=== PATIENT | male | born 1995 | race Two or more races ===

== ENCOUNTER 2017-05-08 13:47 | Emergency (ER) | payer BC ==
[2017-05-08 14:24] VITALS: RESP 16; TEMP 98.6
--- NOTE | 2017-05-08 14:43 | EDPHY ---
H & P Time Seen by Provider: 05/08/17 14:11 HPI/ROS: CHIEF COMPLAINT: recurrent diarrhea, history of C diff HISTORY OF PRESENT ILLNESS: A 22-year-old male who arrived to the ER today as he was scheduled to see the gastroenterology follow-up. However he did not have enough money to me the co-pay thus was to reschedule. As his symptoms are continuing and worsening he would like to get examined here and further treatment. He 1st started having diarrhea and bloody episodes of diarrhea some 2 years ago. He was evaluated at a GI office in [place]. Colonoscopy revealed inflammation of the terminal ileum. Was subsequently diagnosed as having Crohn' s disease. No stools were taken of the time although interestingly, he was working at a nursing over the time. Evidently this past December she had a colonoscopy which was noncontributory. Vis- a-vis he had negative biopsies of the upper GI tract including stomach and duodenum as well as the colon. Subsequently he reports having a C diff positive while going to [facility] ER approximately 3 months ago in January of this year. At that time was placed on a 2 week course of Flagyl which worked well although he still had some diarrhea was far less problematic. In the last few weeks he started noting seen basically resumption of usual symptoms of diarrhea some 4 times a day with tenesmus and urgency. In particular he will wake up of 5 in the morning with this. At times blood but always there seems to be mucus. He has never been diagnosed with irritable bowel syndrome. He is denying significant weight loss. He is having no fevers or chills. There has been no known food exposure or food-borne illness exposure. No one else is currently sick. No recent antibiotic use except for that of the Flagyl as above. REVIEW OF SYSTEMS: Constitutional: No fever, no chills. ENT: No sore throat. He does not recall having a metallic taste while on Flagyl Gastrointestinal: No nausea vomiting. No abdominal pain. Skin: No rashes. Neurological: No headache. Denies any paresthesias. Source: Patient Exam Limitations: No limitations - Social History Alcohol Use: None Drug Use: None - Physical Exam Exam: General Appearance: Alert, no distress. Afebrile. Normal phonation. No respiratory distress. Fit, trim male Eyes: No icterus ENT, Mouth: Mucous membranes moist. TM Clear. Abdomen: Soft and nontender, no masses, bowel sounds normal. Neurological: Ox3. No motor weakness. Sensation intact. Gait nl. Skin: Warm and dry, no rashes. Psychiatric: Normal affect. Constitutional: Initial Vital Signs Temperature (C) 37.0 C 05/08/17 14:05 Heart Rate 70 05/08/17 14:05 Respiratory Rate 16 05/08/17 14:05 Blood Pressure 139/84 H 05/08/17 14:05 O2 Sat (%) 97 05/08/17 14:05 O2 Delivery Mode Room Air Allergies/Adverse Reactions: No Known Allergies Allergy (Verified 05/08/17 14:20) Home Medications: Medication Instructions Recorded Hyoscyamine Sulfate [Levsin] 0.25 mg PO Q4 #20 tablet 05/08/17 Protonix 05/08/17 Ranitidine HCl 05/08/17 metroNIDAZOLE [Flagyl 500 mg (*)] 500 mg PO TID #30 tab 05/08/17 Medical Decision Making ED Course/Re-evaluation: I have encouraged this man to see the silver solderer as originally scheduled. He has a complicated case. However, there certainly are treatment failures to initial dose of Flagyl thereby as it has been 3 months, if he continues to have C diff positive, I would encourage him to complete another course for C diff with Flagyl. Further, he will trial of Levsin for symptomatic management. At this time he has good color and nothing on clinical exam to suggest he has a significant anemia that merits monitoring at this time Differential Diagnosis: Differential diagnosis includes, but is not limited to: Gastroenteritis, diverticulitis, appendicitis, gastritis, mesenteric adenitis, food poisoning, bacterial dysentery, colitis. Departure - Departure Disposition: Home, Routine, Self-Care Clinical Impression: Diarrhea Qualifiers: Diarrhea type: infectious Qualified Code(s): A09 - Infectious gastroenteritis and colitis, unspecified Condition: Good Additional Instructions: Call tomorrow for your C difficile results. If it is positive, then resume taking the Flagyl. If negative then do not fill. Use Levsin for symptomatic treatment. Follow up with GI this next week Start with a stool log for the next two weeks.. Referrals: NONE *PRIMARY CARE P,. [Primary Care Provider] - As per Instructions Stand Alone Forms: Outpatient Laboratory Order Prescriptions: Hyoscyamine Sulfate [Levsin] 0.25 mg PO Q4 #20 tablet metroNIDAZOLE [Flagyl 500 mg (*)] 500 mg PO TID #30 tab
[2017-05-08 16:43] VITALS: BP 132/69; PULSE 88; O2SAT 95
== END 2017-05-08 15:50 | disposition home or self-care (01) ==
LOC: CED 13:47
DX: A09 Infectious gastroenteritis and colitis, unspecified (principal)

== ENCOUNTER 2017-06-23 10:23 | Emergency (ER) | payer SELFPAY ==
--- NOTE | 2017-06-23 12:02 | EDPHY ---
H & P Stated Complaint: +c/diff;scheduled for MRE 07/03 but wants it today - Personal History Current Tetanus Diphtheria and Acellular Pertussis (TDAP): Yes - Medical/Surgical History Hx Asthma: No Hx Chronic Respiratory Disease: No Hx Diabetes: No Hx Cardiac Disease: No Hx Renal Disease: No Hx Cirrhosis: No Hx Alcoholism: No Hx HIV/AIDS: No Hx Splenectomy or Spleen Trauma: No Other PMH: Med ym-N-dpah-dx 01/2017. Surg-none - Social History Smoking Status: Never smoked Time Seen by Provider: 06/23/17 11:40 HPI/ROS: CHIEF COMPLAINT: Abdominal pain history of C diff HISTORY OF PRESENT ILLNESS: 22-year-old male history of C diff colitis currently receiving treatment with oral vancomycin followed by GI of the [facility] Dr. Cain Azevedo complaining of 3 days of progressive epigastric and right sided abdominal pain . No fever no chills. No nausea or vomiting. No melena or hematochezia. No urinary complaints. No testicular pain REVIEW OF SYSTEMS: A ten point review of systems was performed and is negative with the exception of the items mentioned in the HPI PAST MEDICAL & SURGICAL HISTORY: C diff colitis SOCIAL HISTORY: nonsmoker PHYSICAL EXAM (Prior to examination, patient consented to physical exam, hands were washed and my usual and customary physical exam procedures followed) 1) GENERAL: Well-developed, well-nourished, alert and oriented. Appears nontoxic 2) HEAD: Normocephalic, atraumatic 3) HEENT: Pupils equal, round, reactive to light bilaterally. Sclera anicteric. Nasopharynx, oropharynx, clear, no lesions a moist mucous membrane. 4) NECK: Full range of motion, no meningeal signs. 5) LUNGS: Clear auscultation bilaterally, no wheezes, no rhonchi, no retractions. 6) HEART: Regular rate and rhythm, no murmur, no heave, no gallop. 7) ABDOMEN: Guarding abdomen, tender to palpation McBurney's point, tender to palpation epigastrium, negative Rovsing's negative peritoneal negative Sol's , 8) MUSCULOSKELETAL: Moving all extremities, no focal areas of tenderness, no obvious trauma. No peripheral edema or discoloration. 9) BACK: No CVA tenderness, no midline vertebral tenderness, no fluctuance, no step-off, no obvious trauma, no visual or palpable abnormality. 10) SKIN: No rash, no petechiae. 11) Psychiatric: Patient is oriented X 3, there is no agitation. DIFFERENTIAL DIAGNOSIS: My differential diagnosis includes, but is not limited to, acute appendicitis, acute cholecystitis, bowel obstruction, acute pancreatitis,gastritis . The patient understands that this diagnosis is provisional and can never be 100% accurate. This is a partial list of diagnoses considered. These considerations are based on history, physical exam, past history and reassessment. (Liz Self) Constitutional: Initial Vital Signs Temperature (C) 36.7 C 06/23/17 10:30 Heart Rate 67 06/23/17 10:30 Respiratory Rate 16 06/23/17 10:30 Blood Pressure 121/64 H 06/23/17 10:30 O2 Sat (%) 98 06/23/17 10:30 O2 Delivery Mode Room Air Allergies/Adverse Reactions: No Known Allergies Allergy (Verified 06/23/17 10:33) Home Medications: Medication Instructions Recorded Vancomycin [Vancocin Oral Liquid] 125 mg PO 06/23/17 oxyCODONE/APAP 5/325 [Percocet 1 tab PO Q6 #10 tab 06/23/17 5/325] Medical Decision Making - Diagnostics Imaging: Discussed imaging studies w/ administrative support coordinator Radiologist - Diagnostics Imaging Results: Images reviewed myself (Liz Self) ED Course/Re-evaluation: Case discussed with Dr. [place] in the ER. Patient was re-evaluated with serial exams. Discussed his CT showing normal appearing appendix and no signs of acute surgical abdominal pathology. I think that acute surgical abdominal pathology less likely in this patient. Most recent examination at 1:30 p.m. he appears comfortable. Plan will be discharge recommend he follow up with his novelty dipper as previously directed. Usual and customary abdominal precautions instructions provided. He feels comfortable being discharged. ( Liz Self) The patient was evaluated and managed by the physician press assistant and feeder. I have reviewed this chart and I agree with the findings and plan of care as documented , as indicated by my signature. I am the secondary supervising physician. ( Christa [place]) - Data Points Laboratory Results: Laboratory Results 06/23/17 12:15 06/23/17 12:15 Medications Given: Discontinued Medications Al Hydroxide/Mg Hydroxide (Maalox Susp) 30 ml PO ONCE ONE Stop: 06/23/17 13:56 Last Admin: 06/23/17 14:08 Dose: 30 ml Hyoscyamine Sulfate (Levsin, Hyomax-Sl) 0.25 mg PO ONCE ONE Stop: 06/23/17 13:56 Last Admin: 06/23/17 14:08 Dose: 0.25 mg Ketorolac Tromethamine (Toradol) 30 mg IVP EDNOW ONE Stop: 06/23/17 12:54 Last Admin: 06/23/17 12:56 Dose: 30 mg Lidocaine (Lidocaine 2% Viscous) 15 ml PO ONCE ONE Stop: 06/23/17 13:56 Last Admin: 06/23/17 14:08 Dose: 15 ml Departure - Departure Disposition: Home, Routine, Self-Care Clinical Impression: C. difficile colitis Condition: Good Instructions: Acute Abdominal Pain (ED) Additional Instructions: Seek immediate medical attention if you develop new or worsening symptoms, if you develop fevers, chills, inability to tolerate oral intake or any other symptoms that concerns you. Referrals: Gastroenterology [facility] [Provider Group] - 1-2 days without fail Prescriptions: oxyCODONE/APAP 5/325 [Percocet 5/325] 1 tab PO Q6 #10 tab
[2017-06-23 12:23] LABS: % IMMATURE GRANULYOCYTES 0.4 % (0.0-1.1); ABSOLUTE IMMATURE GRANULOCYTES 0.02 10^3/uL (0.00-0.10); ADD DIFF? NO; ADD MORPH? NO; ADD SCAN? NO; ATYPICAL LYMPHOCYTE FLAG 30 (0-99); FRAGMENT RBC FLAG 0 (0-99); HEMATOCRIT 47.5 % (40.0-51.0); HEMOGLOBIN 16.4 g/dL (13.7-17.5); LEFT SHIFT FLG 0 (0-99); LIPEMIA HEMOLYSIS FLAG 90 (0-99); MEAN CELL HEMOGLOBIN 30.6 pg (27.9-34.1); MEAN CELL HEMOGLOBIN CONCENTR. 34.5 g/dL (32.4-36.7); MEAN CELL VOLUME 88.6 fL (81.5-99.8); MEAN PLATELET VOLUME 10.3 fL (8.7-11.7); PLATELET CLUMPS FLAG 0 (0-99); PLATELET COUNT 217 10^3/uL (150-400); RED BLOOD CELL COUNT 5.36 10^6/uL (4.40-6.38); RED CELL DISTRIBUTION WIDTH 12.2 % (11.5-15.2)
[2017-06-23] MEDS ORDERED: IOPAMIDOL (ISOVUE-300) 100 ML BTL ONE (12:27)
[2017-06-23 12:43] LABS: ALANINE AMINOTRANSFERASE 34 IU/L (21-72); ALBUMIN 4.4 g/dL (3.5-5.0); ALKALINE PHOSPHATASE 51 IU/L (38-126); ANION GAP 11 mEq/L (8-16); ASPARTATE AMINOTRANSFERASE 24 IU/L (17-59); BILIRUBIN,TOTAL 0.7 mg/dL (0.1-1.4); BILIRUBIN-CONJUGATED 0.2 mg/dL (0.0-0.5); BILIRUBIN-UNCONJUGATED 0.5 mg/dL (0.0-1.1); CALCIUM 10.3 mg/dL (8.5-10.4); CARBON DIOXIDE 23 mEq/l (22-31); CHLORIDE 104 mEq/L (97-110); CREATININE 1.1 mg/dL (0.7-1.3); GLOMERULAR FILTRATION RATE > 60; GLUCOSE 91 mg/dL (70-100); POTASSIUM 4.4 mEq/L (3.5-5.2); SODIUM 138 mEq/L (134-144); TOTAL PROTEIN 7.6 g/dL (6.3-8.2)
[2017-06-23] MEDS ORDERED: KETOROLAC 30 MG/1 ML SDV IVP ONE (12:53)
[2017-06-23] MEDS ORDERED: HYOSCYAMINE SULFATE 0.125 MG TAB PO ONE (13:55)
[2017-06-23] MEDS ORDERED: LIDOCAINE 2% VISCOUS 15 ML UDCUP PO ONE (13:55)
[2017-06-23] MEDS ORDERED: MAG HYDROX/AL HYDROX/SIMETH 30 ML UDCUP PO ONE (13:55)
[2017-06-23 14:11] VITALS: BP 122/59; PULSE 71; RESP 15; O2SAT 96
[2017-06-23 15:08] VITALS: TEMP 98.4
== END 2017-06-23 15:06 | disposition home or self-care (01) ==
DX: A04.7 Enterocolitis due to Clostridium difficile (principal)
CPT/HCPCS: 82947-QW; 96374; J1885; Q9967

== ENCOUNTER 2017-06-27 06:59 | Inpatient (IN) | payer SELFPAY ==
[2017-06-27] MEDS ORDERED: ONDANSETRON DISINTEGRATING 4 MG TAB PO ONE (07:32)
[2017-06-27] MEDS ORDERED: NS 1,000 ML IV ONE ×2 (07:52→08:14)
--- NOTE | 2017-06-27 08:00 | EDPHY ---
H & P Stated Complaint: c diff/vomiting - Personal History Current Tetanus/Diphtheria Vaccine: Yes - Medical/Surgical History Hx Asthma: No Hx Chronic Respiratory Disease: No Hx Diabetes: No Hx Cardiac Disease: No Hx Renal Disease: No Hx Cirrhosis: No Hx Alcoholism: No Hx HIV/AIDS: No Hx Splenectomy or Spleen Trauma: No Other PMH: Med rx-Y-xvnk-dx 01/2017. Surg-none - Social History Smoking Status: Never smoked <Parrish Carreno - Last Filed: 06/27/17 08:48> Source: Patient <Dorian Mcgovern - Last Filed: 06/30/17 13:53> Time Seen by Provider: 06/27/17 07:44 Constitutional: Initial Vital Signs Temperature (C) 36.4 C 06/27/17 07:10 Heart Rate 64 06/27/17 07:10 Respiratory Rate 20 06/27/17 07:10 Blood Pressure 129/83 H 06/27/17 07:10 O2 Sat (%) 98 06/27/17 07:10 O2 Delivery Mode Room Air Allergies/Adverse Reactions: No Known Allergies Allergy (Verified 06/29/17 01:14) Home Medications: Medication Instructions Recorded Vancomycin [Vancocin Oral Liquid] 125 mg PO QID 06/23/17 Promethazine HCl 25 mg PO Q6-8PRN PRN #4 tablet 06/29/17 Protonix 06/29/17 Ranitidine HCl 06/29/17 Ondansetron Odt [Zofran Odt] 4 mg PO Q4PRN PRN #20 tab 06/30/17 Medical Decision Making <Parrish Carreno - Last Filed: 06/27/17 08:48> <Dorian Mcgovern - Last Filed: 06/30/17 13:53> ED Course/Re-evaluation: CHIEF COMPLAINT: Vomiting HISTORY OF PRESENT ILLNESS: This patient is a 22 year old male with history of c-difficile colitis arriving via private vehicle complaining of vomiting onset this morning at 3:00am, five hours ago. 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 In December 2016, he started a course of Flagyl, but did not respond to that treatment. Shortly following this, he moved to [place] and has had continued treatment, followed by GI of the [facility] and Dr. Cain Azevedo, infectious disease specialist. He started on oral vancomycin at the beginning of May and began a second extended course in mid-May. He was seen in this emergency department 06/23/17, four days ago, for epigastric and right-sided abdominal pain , and discharged home in good condition. Today, he began throwing up at 3am, and has been unable to control his vomiting. He denies fever, chills, blood in his stool, urinary complaints, or other associated symptoms. REVIEW OF SYSTEMS: A 10 point review of systems was performed and is negative with the exception of the elements mentioned in the history of present illness. PHYSICAL EXAM: HR, BP, O2 Sat, RR. Temp noted General Appearance: Alert, dehydrated-appearing, appropriate, and non-toxic appearing. Head: Atraumatic without scalp tenderness or obvious injury Eyes: Pupils equal, round, reactive to light and accommodation, EOMI, no trauma , no injection. Nose: Atraumatic, no rhinorrhea, clear. Throat: There is no erythema or exudates, no lesions, normal tonsils, mucus membranes dry. Neck: Supple, nontender, no lymphadenopathy. Respiratory: No retractions, no distress, no wheezes, and no accessory muscle use. Lungs are clear to auscultation bilaterally. Cardiovascular: Regular rate and rhythm, no murmurs, rubs, or gallops. Good capillary refill all extremities. Gastrointestinal: Epigastric tenderness. Abdomen is soft, non-distended, no masses, no rebound, no guarding, no peritoneal signs. Musculoskeletal: Normal active ROM of all extremities, atraumatic. Neurological: Alert, appropriate, and interactive. Nonfocal neuro exam. Skin: No rashes, good turgor, no nodules on palpation. Past medical history: Clostridium-difficile colitis. Past surgical history: Denies. Family history: Noncontributory. Social history: Nonsmoker. Works for [employer]. Lives in [place]. DIFFERENTIAL DIAGNOSIS: The differential diagnosis for the patient's nausea and vomiting included but was not limited to c-difficile colitis, gastroenteritis, gastritis, appendicitis , and medication side effect. MEDICAL DECISION MAKIN22 year old male with history of c-difficile colitis initially diagnosed in December, presents with five hour history of vomiting. Physical exam reveals abdominal tenderness and dry oral mucosa. CT abdomen completed 06/23/17 was unremarkable, and the patient feels his pain has not worsened since then. No evidence of appendicitis on CT. He has also had a recent colonoscopy. I do not suspect a need for further emergent imaging at this time. Plan to admit for dehydration and vomiting to observation. The patient does not feel he will be able to manage his treatment at home due to uncontrollable vomiting and dehydration, and he is comfortable with this plan. IV established. Plan for labs including CBC, BMP, liver, lipase, and c-diff DNA. Administered 4mg IV Zofran, 12.5mg IV Phenergan, and 1L IV NS for symptom relief. 08:[address] Warner, infectious disease specialist. Plan to start patient on IV Flagyl until his vomiting is controlled and he can resume treatment with oral vancomycin. Administered 500mg IV Flagyl. Administered an additional 1L IV NS for dehydration relief. 08:21 Spoke with hospitalist service. Dr. Golden accepts admission for observation. 08:46 Patient transferred to floor. (Parrish Carreno) Other Provider: I did not evaluate this patient during this ED visit. (Doiran Mcgovern) - Data Points Medications Given: Discontinued Medications Enoxaparin Sodium (Lovenox) 40 mg SC DAILY DILLON Stop: 12/24/17 08:59 Last Admin: 06/28/17 07:39 Dose: 40 mg Sodium Chloride (Ns) 1,000 mls @ 0 mls/hr IV ONCE ONE; Wide Open PRN Reason: Protocol Stop: 06/27/17 07:53 Last Admin: 06/27/17 08:01 Dose: 1,000 mls Metronidazole/Sodium Chloride (Flagyl 500 Mg (Premix)) 100 mls @ 100 mls/hr IV EDNOW ONE PRN Reason: Protocol Stop: 06/27/17 09:12 Last Admin: 06/27/17 09:51 Dose: 100 mls Sodium Chloride (Ns) 1,000 mls @ 0 mls/hr IV EDNOW ONE; Wide Open PRN Reason: Protocol Stop: 06/27/17 08:15 Last Admin: 06/27/17 08:32 Dose: 1,000 mls Sodium Chloride (Ns) 1,000 mls @ 100 mls/hr IV CONT DILLON Stop: 12/24/17 08:59 Last Admin: 06/27/17 09:50 Dose: 1,000 mls Glucagon 0.3 mg/ Miscellaneous (Information) 0.3 mls @ 0 mls/hr IVP ONCE ONE PRN Reason: As Directed Stop: 06/27/17 14:01 Last Admin: 06/27/17 17:16 Dose: Not Given Glucagon 0.3 mg/ Miscellaneous (Information) 0.3 mls @ 0 mls/hr IVP ONCE ONE PRN Reason: As Directed Stop: 06/27/17 14:01 Last Admin: 06/27/17 17:16 Dose: Not Given Sodium Chloride (Ns) 1,000 mls @ 125 mls/hr IV CONT DILLON Stop: 12/24/17 23:29 Last Admin: 06/28/17 09:21 Dose: 1,000 mls Sodium Chloride (Ns) 500 mls @ 1,500 mls/hr IV ONCE ONE Stop: 06/27/17 23:35 Last Admin: 06/28/17 00:02 Dose: 500 mls Lorazepam (Ativan Injection) 0.5 mg IVP Q4HRS PRN PRN Reason: Anxiety, Unable to Take PO Stop: 12/24/17 10:51 Last Admin: 06/27/17 11:08 Dose: 0.5 mg Ondansetron HCl (Zofran Odt) 4 mg PO EDNOW ONE Stop: 06/27/17 07:33 Last Admin: 06/27/17 07:34 Dose: 4 mg Ondansetron HCl (Zofran) 4 mg IVP Q4HRS PRN PRN Reason: Nausea/Vomiting, Can't Take PO Stop: 12/24/17 08:57 Last Admin: 06/27/17 14:27 Dose: 4 mg Ondansetron HCl (Zofran Odt) 4 mg PO Q4HRS PRN PRN Reason: Nausea/Vomiting, Use 1st Stop: 12/24/17 08:57 Last Admin: 06/28/17 11:41 Dose: 4 mg Oxycodone/Acetaminophen (Percocet 5/325) 1 tab PO Q4HRS PRN PRN Reason: Pain, Severe Able to Take PO Stop: 07/07/17 13:54 Last Admin: 06/28/17 11:40 Dose: 1 tab Promethazine HCl (Phenergan) 12.5 mg IVP ONCE ONE Stop: 06/27/17 08:07 Last Admin: 06/27/17 08:10 Dose: 12.5 mg Promethazine HCl (Phenergan) 12.5 mg IVP ONCE ONE Stop: 06/27/17 08:29 Last Admin: 06/27/17 08:33 Dose: 12.5 mg Promethazine HCl (Phenergan) 25 mg IVP Q6HRS PRN PRN Reason: Nausea/Vomiting, Can't Take PO Stop: 12/24/17 10:50 Last Admin: 06/28/17 09:17 Dose: 25 mg Vancomycin HCl (Vancocin Oral Liquid) 125 mg PO QID DILLON PRN Reason: Protocol Stop: 07/27/17 09:24 Last Admin: 06/28/17 15:35 Dose: 125 mg Departure <Parrish Carreno - Last Filed: 06/27/17 08:48> <Dorian Mcgovern - Last Filed: 06/30/17 13:53> - Departure Disposition: [facility] Inpatient Acute Clinical Impression: C. difficile colitis Nausea & vomiting Qualifiers: Vomiting type: unspecified Vomiting Intractability: non-intractable Qualified Code(s): R11.2 - Nausea with vomiting, unspecified Condition: Fair Report Scribed for: Parrish Carreno Report Scribed by: Shruthi Bush Date of Report: 06/27/17 Time of Report: 08:31 <Parrish Carreno - Last Filed: 06/27/17 08:48>
[2017-06-27] MEDS ORDERED: PROMETHAZINE HCL 25 MG/ML INJ IVP ONE ×2 (08:06→08:28)
[2017-06-27 08:21] LABS: % IMMATURE GRANULYOCYTES 0.4 % (0.0-1.1); ABSOLUTE IMMATURE GRANULOCYTES 0.05 10^3/uL (0.00-0.10); ADD DIFF? NO; ADD MORPH? NO; ADD SCAN? NO; ATYPICAL LYMPHOCYTE FLAG 10 (0-99); FRAGMENT RBC FLAG 0 (0-99); HEMATOCRIT 48.2 % (40.0-51.0); HEMOGLOBIN 16.5 g/dL (13.7-17.5); LEFT SHIFT FLG 0 (0-99); LIPEMIA HEMOLYSIS FLAG 90 (0-99); MEAN CELL HEMOGLOBIN 30.7 pg (27.9-34.1); MEAN CELL HEMOGLOBIN CONCENTR. 34.2 g/dL (32.4-36.7); MEAN CELL VOLUME 89.8 fL (81.5-99.8); MEAN PLATELET VOLUME 10.9 fL (8.7-11.7); PLATELET CLUMPS FLAG 0 (0-99); PLATELET COUNT 242 10^3/uL (150-400); RED BLOOD CELL COUNT 5.37 10^6/uL (4.40-6.38); RED CELL DISTRIBUTION WIDTH 12.2 % (11.5-15.2)
[2017-06-27 08:27] LABS: ALANINE AMINOTRANSFERASE 38 IU/L (21-72); ALBUMIN 4.8 g/dL (3.5-5.0); ALKALINE PHOSPHATASE 60 IU/L (38-126); ANION GAP 16 mEq/L (8-16); ASPARTATE AMINOTRANSFERASE 29 IU/L (17-59); BILIRUBIN,TOTAL 1.2 mg/dL (0.1-1.4); BILIRUBIN-CONJUGATED 0.3 mg/dL (0.0-0.5); BILIRUBIN-UNCONJUGATED 0.9 mg/dL (0.0-1.1); CALCIUM 10.2 mg/dL (8.5-10.4); CARBON DIOXIDE 22 mEq/l (22-31); CHLORIDE 104 mEq/L (97-110); CREATININE 1.4 mg/dL (0.7-1.3); GLOMERULAR FILTRATION RATE > 60; GLUCOSE 128 mg/dL (70-100); POTASSIUM 4.2 mEq/L (3.5-5.2); SODIUM 142 mEq/L (134-144); TOTAL PROTEIN 7.9 g/dL (6.3-8.2)
[2017-06-27] MEDS ORDERED: ACETAMINOPHEN 325 MG TAB PO PRN (08:58)
[2017-06-27] MEDS ORDERED: NS 1,000 ML IV SCH (09:00)
[2017-06-27] MEDS: ONDANSETRON 4 MG/2 ML VIAL IVP PRN ×2 (09:50→14:27)
[2017-06-27] MEDS: VANCOMYCIN 125 MG/2.5 ML UDL PO SCH ×4 (09:50→21:43)
[2017-06-27] MEDS: ENOXAPARIN 40 MG/0.4 ML SYR SC SCH (09:53)
[2017-06-27] MEDS ORDERED: LORazepam 2 MG/ML INJ IVP PRN (10:52)
[2017-06-27] MEDS: PROMETHAZINE HCL 25 MG/ML INJ IVP PRN ×2 (11:08→17:28)
--- NOTE | 2017-06-27 13:22 | GCON ---
[f rep st] CONSULTATION INFECTIOUS DISEASE CONSULTATION. DATE OF CONSULTATION: 06/27/2017 REASON FOR CONSULTATION: Vomiting, nausea, history of recurrent C difficile. Further evaluation and opinion. CHIEF COMPLAINT: Vomiting. HISTORY OF PRESENT ILLNESS: This is a 22-year-old male with a past medical history significant for recurrent C difficile colitis. His first official diagnosis was back in December 2012. He apparently had 2 or 3 courses of Flagyl due to ongoing symptoms. He was finally seen by my colleague, Dr. Murphy in April. He had a positive PCR for C difficile, started on oral vancomycin therapy. He did 2 weeks of therapy with response in an improvement in his clinical symptoms until about 2 days after he stopped taking the therapy when he had recurrence of symptoms. I suspect a followup stool study continued to show positive C difficile PCR. Patient was restarted on oral vancomycin therapy with a plan for a 6 week taper course. That was on 06/07. He tells me he still is taking the q.6 hour dosing regimen and was due to switch down to a q.12 hour regimen in the next day or 2. He states that on around the first of June, he had increasing upper epigastric pain, came into the ER for further evaluation. At that time, he ended up having a CAT scan of the abdomen and pelvis, which showed possible punctate nonobstructing right renal stone, a tiny hypodensity in the spleen and otherwise the colon was not reported to show inflammation or obstruction. He went home after that but came in today after acute bout of vomiting started yesterday evening. He states he vomited about 4 or 5 times yesterday. His last meal was chicken nuggets from [employer] which he stated tasted fine. He states he has had no recent sick or ill contacts, particularly those who have had any vomiting or diarrhea recently. This morning he vomited about 3 times. He states it is mostly stomach material, mildly yellow fluid. He feels weak. He denies any fevers. He states he is always chilly. He continues to have upper epigastric abdominal pain. Nothing makes it feel better. He actually states that he has had this upper epigastric pain for the last 2 years. He tells me he has had a colonoscopy and an EGD done back in December. He has seen Ruth Calderon, physician assistant oceanographer from [facility] and he states the last time he saw her was back in April. He tells me that he was cued up for an MRE on 07/03. He tells me that he smokes marijuana to help with nausea. He states that he has not taken any excessive amounts of it. As far as his stools are concerned, they are loose and mushy, about 4 times a day. He states that they were more watery about 2-1/2 to 3 weeks ago right before he got restarted on oral vancomycin therapy and soon improved to more of a loose, mushy type consistency. He denies any blood in his stools. Denies any blood in the vomitus. Infectious Disease is now consulted for further evaluation and opinion. REVIEW OF SYSTEMS: GENERAL: No fevers, some chilly sensations. No shaking chills. HEAD: No headaches. EYES: No change in vision. ENT: No sore throat , difficulty swallowing, ear pain or drainage. CARDIOVASCULAR: Denies any chest pain or rapid heartbeat. RESPIRATORY: Denies any shortness of breath, cough or sputum production. ABDOMEN: As above. : No dysuria, hematuria. BACK: Some muscle aches and vomiting in the back. EXTREMITIES: Denies any muscle aches or joint swelling. SKIN: No rashes. Rest of 10-point review of systems essentially negative as above. PAST MEDICAL HISTORY: Significant for recurrent C difficile colitis. PAST SURGICAL HISTORY: None. ALLERGIES: No known drug allergies. SOCIAL HISTORY: He does not drink alcohol or smoke tobacco. He denies any illicit drug usage. He does use marijuana. He has been using it since December or January. He lives in an apartment which he states is of decent quality. He has not left the country ever in his life. He has not left [place] recently. He has not done any hiking or camping recently. He played baseball 2 days ago and denied any, again, ill contacts at that time. He has a cat who is mostly indoor who is well. He is currently unemployed. The patient is sexually active , heterosexual in preference, last sexual encounter was in April. He states he uses condoms. FAMILY HISTORY: No significant family history. PHYSICAL EXAMINATION: VITAL SIGNS: Temperature current 36.3, pulse is 80, respiratory rate 16, blood pressure 129/81, saturation 93% on room air. GENERAL : Patient is resting in bed. No acute respiratory distress. Awake, alert and oriented x3. He does appear weak. HEENT: Head is normocephalic, atraumatic. Eyes without conjunctival injection or petechiae noted. Oropharynx is without thrush. Tongue is coated. CARDIOVASCULAR: S1, S2. Regular rate and rhythm. No murmurs appreciated. RESPIRATORY: Clear to auscultate bilaterally. No rhonchi or rales appreciated. ABDOMEN: Positive bowel sounds in all quadrants. Soft, nondistended. He has tenderness in the epigastric area with some mild guarding. EXTREMITIES: No lower extremity edema. MUSCULOSKELETAL: No joint effusions or pain on palpation of joints. SKIN: No obvious rashes. LABORATORY DATA: White blood cell count 13.1, hemoglobin 16.5, platelets are 242, neutrophils 74%. Sodium 142, potassium 4.2, chloride 74, bicarb 22, BUN is 23, creatinine 1.4. LFTs are within the normal range. Lipase is 264, albumin is 4.8. C difficile study today; PCR on the stool is negative. ASSESSMENT: 1. Acute nausea, vomiting. 2. Recurrent C difficile. 3. Leukocytosis. PLAN: At this point in time, his current symptoms are of uncertain etiology. His stool for C difficile is negative. Would recommend a stool GI pathogen to assess for other pathogens such as viruses perhaps like norovirus or other bacterial causes for his symptoms. Will also check blood cultures x2 sets. Would recommend a urine drug screen, wonder if this could all be related to marijuana or other. I also discussed HIV with him for which he gave me verbal consent to check. He states he was last checked in November. Will also add immunoglobulins to further evaluate as well. May need to consider GI consult further re-evaluation while he is here to assess whether or not there is any need to do the MRE while here versus setting him up for a repeat EGD or colonoscopy. Continue with p.o. vancomycin q.6 hours for now. His recent CT of the abdomen did not show any obvious evidence of colitis. Care coordinated with the hospitalist team. Thank you very much for the opportunity to care for your patient in consultation. /[id number]/MODL MTDD
[2017-06-27] MEDS ORDERED: GLUCAGON,HUMAN RECOMBINANT 0.3 MG in SYRINGE 0.3 ML IVP ONE (14:00)
[2017-06-27] MEDS ORDERED: GADOBUTROL 10 ML VIAL IVP ONE (14:50)
[2017-06-27 14:52] LABS: COLOR YELLOW; LEUKOCYTE ESTERASE,URINE NEGATIVE (NEGATIVE); NITRITE,URINE NEGATIVE (NEGATIVE)
[2017-06-27 15:11] LABS: MUCUS TRACE /lpf (NONE-1+)
--- NOTE | 2017-06-27 15:53 | GHP ---
[f rep st] HISTORY AND PHYSICAL DATE OF ADMISSION: 06/27/2017 CHIEF COMPLAINT: Abdominal pain, nausea, vomiting. HISTORY OF PRESENT ILLNESS: A 22-year-old male, who was diagnosed with C difficile colitis per his report in December 2016, and has had persistent symptoms ongoing of intermittent abdominal pain, diarrh ea, nausea, and vomiting. The patient re-presents to the emergency department this morning with sym ptoms that he reports are keeping him from keeping adequate p.o. intake down. Per his report, nearl y no true food or fluid in the past several days. He does report he has been able to keep his oral vancomycin doses down but inadequate fluid and food. The patient reports nausea with vomiting that is nonbloody, stools which are watery, and he describes frequency to be 3-4 times per day. 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 Denies any previous antibiotic use. Th e patient has been followed closely by outpatient Gastroenterology as well as Infectious Disease. H valdemar was originally treated with oral Flagyl and has been transitioned to oral vancomycin. Endorses griffin bjective fevers. No chills. Denies shortness of breath. PAST MEDICAL HISTORY: Recent diagnosis of C difficile colitis with persistent abdominal pain. SOCIAL HISTORY: Negative for tobacco, rare alcohol, nightly marijuana for nausea and sleep assistan ce. FAMILY HISTORY: Negative for heart disease or lung disease. REVIEW OF SYSTEMS: A 10-point review of systems is negative with the exception of that reported in the HPI. PHYSICAL EXAMINATION: VITAL SIGNS: Blood pressure 129/81, heart rate 80, respiratory rate 16, 98% on room air, 36.3. GENERAL: This is a young male who appears uncomfortable on examination. HEENT: Notable for dry mucous membranes. Eye exam is negative for any icterus. CARDIAC: Patient is reg ular rate and rhythm. PULMONARY: Good respiratory effort. Clear to auscultation bilaterally. GAS TROINTESTINAL: Positive bowel sounds. Abdomen is thin and soft. Patient has pain in the epigastri c area and left lower quadrant. MUSCULOSKELETAL: Negative for any lower extremity edema. SKIN: N egative for any rashes. NEUROLOGIC: He is alert and oriented x3. PSYCHIATRIC: He is cooperative on interview and examination. DATA: White count 13.1, platelets 242. Creatinine 1.4. Baseline appears less than 1. Sodium 142, blood glucose 128. CT of the abdomen and pelvis, which was obtained 3 days prior to presentation, shows no acute colitis or inflammation. ASSESSMENT AND PLAN: This is a 22-year-old male presenting with abdominal pain, nausea, vomiting. 1. Acute abdominal pain, nausea, and vomiting. The patient's Clostridium difficile PCR is negative on admission, which is unusual for ongoing C difficile colitis as well as CT scan that is negative for acute colonic inflammation. I have consulted both Infectious Disease and Gastroenterology as th ey have been working the patient up in the outpatient clinic. [facility]. Their suspicion for ulcerative colitis was low, but they were going to use this imaging modality to rule it out. We will order the MRE, place the patient on regular diet so we can order what he can tolerate. Have ordered IV fluid s, IV antiemetics, and oral pain medications p.r.n. We will follow the results of his initial malina p. Have additionally ordered urinalysis as well as a urine drug screen to better understand and cris ce the patient's symptoms in context. 2. Acute kidney injury presumed secondary to hypovolemia. Will fluid resuscitate and follow. 3. Acute leukocytosis. May simply be the stress of the acute presentation. Again, lower suspicion for worsening Clostridium difficile colitis as PCR is negative. Will continue the patient on his f our times daily dosing of oral vancomycin for now and follow stool frequency and caliber. Will william tionally send a urinalysis to rule out occult urinary tract infection. Infectious Disease is follow ing along. Have sent immunosuppression labs including HIV and immunoglobulin. 4. Prophylaxis with Lovenox. 5. Diet: Regular as tolerated. DISPOSITION: I expect greater than 2 midnights as the patient will likely need 48 hours for symptom control and completion of his diagnostic workup. I have discussed the case with Dr. Warner from Infec tious Disease and Dr. Adams from Gastroenterology. The patient will be admitted to the med/surg [facility] for medications, monitoring, and diagnostics. /[id number]/MODL
[2017-06-27] MEDS: OXYCODONE/APAP 5/325 TAB PO PRN ×2 (17:29→21:42)
[2017-06-27 19:17] LABS: PHENCYCLIDINE URINE BCH < 6 ng/ml (NEGATIVE); PHENCYCLIDINE URINE BCH NEGATIVE (NEGATIVE)
[2017-06-27 19:54] LABS: TETRAHYDROCANNABINOL URINE 222 ng/mL (NEGATIVE)
[2017-06-27] MEDS ORDERED: NS BOLUS 500 ML (Wide open) IV ONE (23:16)
[2017-06-27] MEDS ORDERED: NS 500 ML IV ONE (23:16)
[2017-06-28] MEDS: NS 1,000 ML IV SCH ×2 (00:02→09:21)
[2017-06-28 05:12] LABS: ANION GAP 11 mEq/L (8-16); CALCIUM 9.2 mg/dL (8.5-10.4); CARBON DIOXIDE 23 mEq/l (22-31); CHLORIDE 108 mEq/L (97-110); CREATININE 1.2 mg/dL (0.7-1.3); GLOMERULAR FILTRATION RATE > 60; GLUCOSE 96 mg/dL (70-100); POTASSIUM 4.2 mEq/L (3.5-5.2); SODIUM 142 mEq/L (134-144)
[2017-06-28] MEDS: VANCOMYCIN 125 MG/2.5 ML UDL PO SCH ×3 (05:12→15:35)
[2017-06-28 06:00] LABS: % IMMATURE GRANULYOCYTES 0.6 % (0.0-1.1); ABSOLUTE IMMATURE GRANULOCYTES 0.08 10^3/uL (0.00-0.10); ADD DIFF? NO; ADD MORPH? NO; ADD SCAN? NO; ATYPICAL LYMPHOCYTE FLAG 0 (0-99); FRAGMENT RBC FLAG 20 (0-99); HEMATOCRIT 44.4 % (40.0-51.0); HEMOGLOBIN 14.8 g/dL (13.7-17.5); LEFT SHIFT FLG 0 (0-99); LIPEMIA HEMOLYSIS FLAG 80 (0-99); MEAN CELL HEMOGLOBIN 30.6 pg (27.9-34.1); MEAN CELL HEMOGLOBIN CONCENTR. 33.3 g/dL (32.4-36.7); MEAN CELL VOLUME 91.7 fL (81.5-99.8); MEAN PLATELET VOLUME 10.7 fL (8.7-11.7); PLATELET CLUMPS FLAG 10 (0-99); PLATELET COUNT 211 10^3/uL (150-400); RED BLOOD CELL COUNT 4.84 10^6/uL (4.40-6.38); RED CELL DISTRIBUTION WIDTH 12.3 % (11.5-15.2)
[2017-06-28] MEDS: OXYCODONE/APAP 5/325 TAB PO PRN ×2 (07:37→11:40)
[2017-06-28] MEDS: ONDANSETRON DISINTEGRATING 4 MG TAB PO PRN ×2 (07:39→11:41)
[2017-06-28] MEDS: ENOXAPARIN 40 MG/0.4 ML SYR SC SCH (07:39)
[2017-06-28] MEDS: PROMETHAZINE HCL 25 MG/ML INJ IVP PRN (09:17)
--- NOTE | 2017-06-28 10:27 | ASMTCMCOM ---
CM Note CM Note Notes: Pt is a 22 y/o man admitted for abdominal pain, nausea and vomitting. Spoke w/ LUDWIG Marcano. Pt has a hx of chronic CDIF for past 3 yrs in addition to hx of chronic abdominal pain. Pt has lost a significant amount of weight due to abdominal pain. Pt moved from [place] and has been using marijuana to help w/ his appetite/abdominal pain. Pt will most likely d/c independent without any needs. CM available for any changes. Date Signed: 06/28/2017 10:27 AM Electronically Signed By:Teressa Reina
--- NOTE | 2017-06-28 11:28 | PCMIDPN ---
Assessment/Plan: Assessment/Plan: * Intractable nausea and vomiting: Unusual presenting symptoms for C difficile and C difficile testing by PCR and by GI pathogen panel both negative. Agree with plans for GI evaluation. * Recurrent C difficile: Unclear if this represents colonization versus recurrent colitis. At time of last positive PCR, did have recurrent diarrhea and abdominal pain. Would be unusual to have persistent symptoms with oral vancomycin at this point in time. Think patient likely will require repeat colonoscopy to define if changes of C difficile versus other etiology such as IBD are present (when in [place] was told he had Crohn's disease but this has not been documented locally when he had endoscopy). Will continue oral vancomycin. 06/28/17 11:25 06/28/17 11:27 Subjective: Patient complains of persistent nausea and vomiting. Oral intake remains limited due to nausea. Soft stool but no alice diarrhea. Complains of epigastric pain. Objective: Vital Signs Temp Pulse Resp BP Pulse Ox 37.0 C 79 16 114/65 97 06/28/17 07:29 06/28/17 07:29 06/28/17 07:29 06/28/17 07:29 06/28/17 07:29 Microbiology 06/27/17 Unknown Gastrointestinal Tract Panel (PCR) - Final Stool No Organism Detected Laboratory Results 06/28/17 04:30 06/28/17 04:30 06/27/17 06/28/17 06/29/17 05:59 05:59 05:59 Intake Total 1850 Output Total 450 Balance 1400 Oral vancomycin Laboratory Tests 06/27/17 06/27/17 09:51 12:35 C. difficile Tox (PCR) NEGATIVE HIV 1&2 Antibody NEGATIVE - Physical Exam General Appearance: alert, no apparent distress EENT: No scleral icterus, No thrush Respiratory: lungs clear, No respiratory distress Cardiac/Chest: regular rate, rhythm, No systolic murmur Abdomen: tender (Mild epigastric tenderness without peritoneal signs), No distended ICD10 Worksheet Patient Problems: Problems Problem Status Onset C. difficile colitis Acute Nausea & vomiting Acute C. difficile diarrhea Acute ~06/07/17
[2017-06-28 12:04] VITALS: RESP 18
--- NOTE | 2017-06-28 12:51 | GCON ---
[f rep st] CONSULTATION INPATIENT CONSULTATION NOTE REFERRING PHYSICIAN: Dr. Mosqueda REASON FOR CONSULTATION: Nausea. CHIEF COMPLAINT: Nausea, vomiting. HISTORY OF PRESENT ILLNESS: Briefly, the patient is a pleasant 22-year-old male who has been plagued by chronic abdominal symptoms over approximately the last 2 years. Two years ago, while living in [place], he presented with symptoms of nausea, vomiting, and diarrhea. Workup at that time was concerning for terminal ileal Crohn disease. He reports he was briefly on therapies for Crohn disease. He does not believe those therapies were ultimately very helpful. Subsequently, he has moved to [place]. He had discontinued those Crohn disease therapies meanwhile. While in [place], he had a representation of nausea, vomiting, and diarrhea. He was diagnosed with C difficile colitis based on stool testing. He has been on multiple rounds of Flagyl and vancomycin. Recent C difficile testing, this hospitalization, has been negative. He reports his diarrhea has resolved. Meanwhile, however, over the last 6-9 months, he has had fairly constant nausea and difficulty with eating. He believes he has lost between 10 and 20 pounds. He reports eating will lead to abdominal discomfort, and sometimes emesis. Because of the recurrent, consistent, diarrhea symptoms he has been seeking evaluation recently. He has undergone 2 colonoscopies, 1 upper endoscopy, ultrasound, CAT scan, and multiple laboratory tests over the last several months to evaluate his symptoms. Over the last 3-4 days, he reports his symptoms are acutely worse. He began having worsening epigastric pain and difficulty tolerating liquids. He presented to the emergency room for evaluation. He was admitted, with concerns about the possibility of recurrent C difficile (despite the lack of diarrhea). Of note, he has been using marijuana on a daily basis, typically at night, for the last 6 months or more. He has a prior history of more intermittent use. He was not using marijuana around the time that his original presenting complaints occurred 2 years ago, but this has been a fairly constant use over the last 6 months. He DOES describe excellent relief with hot shower, hot bath, etc. PAST MEDICAL HISTORY: Includes C difficile colitis. SOCIAL HISTORY: He does not smoke tobacco. He drinks rare alcohol. He uses marijuana nightly. FAMILY HISTORY: Negative for heart disease or lung disease. REVIEW OF SYSTEMS: A complete 14-point review of systems was undertaken with the patient and is negative, except for those details described in the History of Present Illness. The pertinent positives/negatives are located in the History of Present Illness. PHYSICAL EXAM: GENERAL: This is a pleasant, well-developed male in no apparent distress. HEENT: His pupils are equal, round, reactive to light and accommodation. His sclerae are nonicteric. His oropharynx is clear. NECK: Supple without lymphadenopathy. HEART: Regular without murmur. ABDOMEN: Soft , nontender, with normoactive bowel sounds. EXTREMITIES: Free of cyanosis, clubbing, and edema. NEURO: Grossly nonfocal. SKIN: Warm and dry. PSYCH: Reveals normal mood and affect. JOINTS: Show no arthritis. LABORATORY TESTING: White count of 12.6, hemoglobin of 14.8, hematocrit of 44.4 , platelet count of 211. Sodium of 142, potassium of 4.2, chloride of 108, bicarb of 23, BUN of 14, creatinine of 1.2. AST, ALT, alk phos, bilirubin, total protein, albumin, and lipase are normal. Urinalysis was normal. Toxicology revealed positive THC. C difficile was negative. HIV was negative. IMPRESSION/RECOMMENDATIONS: I suspect that the patient is suffering from a cannabinoid hyperemesis or cannabinoid bowel syndrome. His workup with endoscopy, labs, ultrasound, CT, etc., has been negative. I do not believe that he has underlying Crohn disease. I also do not suspect that his ongoing nausea symptoms are related to Clostridium difficile or Clostridium difficile therapy. He should complete a vancomycin course given his history of C difficile and diarrhea. I suspect that he may be colonized with C difficile. We will monitor his bowel symptoms, after therapy is completed, in order to consider if additional C difficile workup or care is necessary. With relation to his nausea, at this time I recommend he discontinue all THC use. We will observe his symptoms over the next 4-8 weeks. He can continue to use as needed antiemetics and pain therapies if needed. We can add some additional workup for H pylori infection, celiac disease, and thyroid irregularities-although I suspect these tests will be normal. Although with the detail of relief with warm showers/bath is pathognomonic for cannabinoid hyperemesis syndrome. Patient should continue to try to eat. He can discharge home when he is able to tolerate enough liquids to take his medications and remain hydrated. /[id number]/MODL MTDD
[2017-06-28 15:04] VITALS: BP 124/69; PULSE 66; TEMP 98.4; O2SAT 95
--- NOTE | 2017-06-28 15:45 | HOSPPROG ---
Hospitalist Progress Note Assessment/Plan: 22-year-old male admitted with nausea vomiting and suspected Clostridium difficile infection. Patient is new to me today. -acute and recurrent nausea vomiting and epigastric abdominal pain. GI consultation was appreciated and discussed with Dr. Adams. -C difficile infection: Will continue his vancomycin therapy per ID and complete this course and then follow-up. -possible inflammatory bowel disease, celiac H pylori etc per GI consultation. Laboratories are now pending. -weight loss of 20 lb due to poor nutritional intake Plan: Will continue IV fluids and encourage eating and abstinence from THC products. When patient is tolerating liquids and food he can be discharged. Subjective: Reports he has epigastric abdominal pain but no diarrhea. Objective: Vital Signs Temp Pulse Resp BP Pulse Ox 36.9 C 66 18 124/69 H 95 06/28/17 15:02 06/28/17 15:02 06/28/17 15:02 06/28/17 15:02 06/28/17 15:02 Microbiology 06/27/17 Unknown Gastrointestinal Tract Panel (PCR) - Final Stool No Organism Detected Laboratory Results 06/28/17 04:30 06/28/17 04:30 06/27/17 06/28/17 06/29/17 05:59 05:59 05:59 Intake Total 1850 Output Total 450 Balance 1400 - Time Spent With Patient Time Spent with Patient: greater than 35 minutes Time Spent with Patient: Greater than 35 minutes spent on this patients care, greater than 50% of time spent counseling, educating, and coordinating care regarding the above mentioned plan. - Pending Discharge Pending Discharge Within 24 Hours: Yes Pending Discharge Date: 06/29/17 Pending Discharge Time: 11:00 - Physical Exam Constitutional: no apparent distress Eyes: PERRL, anicteric sclera Ears, Nose, Mouth, Throat: moist mucous membranes, hearing normal Cardiovascular: regular rate and rhythym, no murmur, rub, or gallop Respiratory: no respiratory distress, no rales or rhonchi, clear to auscultation Gastrointestinal: other (Epigastric tenderness without a palpable or pulsatile mass liver percusses to normal size there is no icterus. No voluntary or involuntary guarding) Genitourinary: no bladder fullness Skin: warm Musculoskeletal: full muscle strength Neurologic: AAOx3, CN II-XII Intact Psychiatric: interacting appropriately ICD10 Worksheet Patient Problems: Problems Problem Status Onset C. difficile colitis Acute Nausea & vomiting Acute C. difficile diarrhea Acute ~06/07/17
[2017-06-28 20:11] LABS: IMMUNOGLOBULIN A 239 mg/dL (61 - 356); IMMUNOGLOBULIN G 982 mg/dL (767 - 1590); IMMUNOGLOBULIN M 132 mg/dL (37 - 286)
--- NOTE | 2017-06-29 02:59 | GDS ---
[f rep st] DISCHARGE SUMMARY KNOWN ACUTE DIAGNOSES: 1. Hyperemesis syndrome secondary to tetrahydrocannabinol. 2. Clostridium difficile infection with ongoing vancomycin therapy. 3. Twenty pound weight loss. CONSULTATION: Infectious Disease and Gastroenterology. PROCEDURES: MRI enterography showing a normal MR enterography. HOSPITAL COURSE: This is a 22-year-old male with a 2-year history of abdominal pain and a more recen t history of Clostridium difficile infection, which has undergone several courses of treatment with v ancomycin. Today, he presented with epigastric pain, nausea, and vomiting. His admission white coun t was elevated without signs of sepsis. Chemistry panel was normal. Urinalysis negative. Toxicolog y was positive for marijuana although the patient admitted smoking marijuana daily. His C difficile was negative. H pylori negative and HIV 1 and 2 antibody were negative. GI consultation indicated that he had a history very consistent with hyperemesis syndrome secondary t o use of marijuana. This was discussed with him by Dr. Adams and myself, and the patient is strongl y agreeable to stopping marijuana if it resolves his problem. It remains probable that he has some r esidual Clostridium difficile infection and he will complete his course of vancomycin and follow up w ith Infectious Disease. DISCHARGE MEDICATIONS: These are going to be the same as his admission medications and as follows: He will continue his vancomycin 125 mg four times daily, discontinue the use of THC orally. He repor ts at home that he has ranitidine and Nexium, which he will take for heartburn symptomatology. PLAN: The gentleman will follow up with Infectious Disease within the next 2 weeks. Will also follo w up with GI of the [facility] and Dr. Adams in 2 weeks. I have recommended he obtain a PCP for suppor t in stopping the THC, although he is highly motivated to do so. Follow up will be with Dr. Tawanda ferguson and Dr. Cain Azevedo in approximately 2 weeks. LABORATORIES: Of note, at the time of discharge, C difficile in the stool PCR was negative. H pylor i IgG antibody negative. HIV 1 and 2 antibody negative. WBC is slightly elevated at 12,600. Chemis try panel was normal and toxicology was positive for marijuana. /[id number]/MODL
--- NOTE | 2017-07-02 17:05 | ASDISCHSUM ---
Discharge Information Plan Status:Home with No Needs Medically Cleared to Leave:06/28/2017 Discharge Date:06/28/2017 05:25 PM CM D/C Disposition:Home, Routine, Self-Care ADT D/C Disposition:Home, Routine, Self-Care Projected Discharge Date:06/28/2017 12:00 AM Transportation at D/C: Discharge Delay Reason: Follow-Up Date:06/28/2017 12:00 AM Discharge Slot: Final Diagnosis: Placement Information Patient Contact Information Contact Name:MIKALA Relationship: Address: Home Phone: City: [facility] Phone: State/[place] Code: Email: Financial Information Financial Class:Self-Pay Primary Plan Desc:SELF PAY Primary Plan Number: Secondary Plan Desc: Secondary Plan Number: Assessment Information [facility] CM Progress Note CM Note CM Note Notes: Pt is a 22 y/o man admitted for abdominal pain, nausea and vomitting. Spoke w/ LUDWIG Marcano. Pt has a hx of chronic CDIF for past 3 yrs in addition to hx of chronic abdominal pain. Pt has lost a significant amount of weight due to abdominal pain. Pt moved from [place] and has been using marijuana to help w/ his appetite/abdominal pain. Pt will most likely d/c independent without any needs. CM available for any changes. Date Signed: 06/28/2017 10:27 AM Electronically Signed By:Teressa Reina Intervention Information
== END 2017-06-28 17:25 | disposition home or self-care (01) | DRG 897 ==
LOC: F3E 08:48 → OBSVTOIN 09:02
PROVIDERS: ADMIT Hospitalist; ATTEND Hospitalist
DX: F12.188 Cannabis abuse with other cannabis-induced disorder (principal); R11.2 Nausea with vomiting, unspecified; N17.9 Acute kidney failure, unspecified; E86.1 Hypovolemia; A04.7 Enterocolitis due to Clostridium difficile
CPT/HCPCS: 80307; 82784-90; 83516-90; A9585; G0480; J1610; J1650; J2060; J2405; J2550

== ENCOUNTER 2017-06-29 01:06 | Emergency (ER) | payer SELFPAY ==
[2017-06-29] MEDS ORDERED: ONDANSETRON 4 MG/2 ML VIAL IVP ONE (01:19)
[2017-06-29] MEDS ORDERED: NS 1,000 ML IV ONE ×2 (01:19→03:31)
--- NOTE | 2017-06-29 01:19 | EDPHY ---
H & P Stated Complaint: pt d/c'd today after admit for cdiff, says ongoing n/v since being home HPI/ROS: HPI CHIEF COMPLAINT: Nausea and vomiting recent hospitalization HISTORY OF PRESENT ILLNESS: This patient 22-year-old male otherwise healthy however significant past medical history for C diff colitis, was recently hospitalized for nausea vomiting. He presents back to the emergency room after being discharged around 430 today with ongoing nausea vomiting. He states he felt fine when he went home. He had mashed potatoes and some fish. He then developed nausea vomiting countless times. Nonbilious nonbloody. No diarrhea. He does have abdominal cramping. Past Medical History: C diff diagnosis 01/2017 Past Surgical History: Denies recent surgery Social History: Denies daily use drugs alcohol tobacco products. Family History: Noncontributory ROS REVIEW OF SYSTEMS: A comprehensive 10 point review of systems is otherwise negative aside from elements mentioned in the history of present illness. Exam Constitutional appears well nontoxic triage nursing summary reviewed, vital signs reviewed, awake/alert. Eyes normal conjunctivae and sclera, EOMI, PERRLA. HENT normal inspection, atraumatic, moist mucus membranes, no epistaxis, neck supple/ no meningismus, no raccoon eyes. Respiratory clear to auscultation bilaterally, normal breath sounds, no respiratory distress, no wheezing. Cardiovascular rate normal, regular rhythm, no murmur, no edema, distal pulses normal. Gastrointestinal soft, mild tenderness periumbilical, no rebound, no guarding , normal bowel sounds, no distension, no pulsatile mass. Genitourinary no CVA tenderness. Musculoskeletal no midline vertebral tenderness, full range of motion, no calf swelling, no tenderness of extremities, no meningismus, good pulses, neurovascularly intact. Skin pink, warm, & dry, no rash, skin atraumatic. Neurologic awake, alert and oriented x 3, AAOx3, moves all 4 extremities equally, motor intact, sensory intact, CN II-XII intact, normal cerebellar, normal vision, normal speech. Psychiatric normal mood/affect. Heme/Lymph/Immune no lymphadenopathy. Differential diagnosis includes but is not limited to and in no particular order : Bowel obstruction, appendicitis, gallbladder disease, diverticulitis, colitis , enteritis, perforated viscus, gastritis, GERD, esophagitis, urinary tract infection, pyelonephritis, kidney stones Medical Decision Making: Plan for this patient IV fluid bolus, IV Zofran for nausea, check electrolytes and basic blood work. KUB. Most likely will need to be readmitted to the hospital for nausea vomiting. Re-evaluation: 0312AM: Re-evaluation at this time patient resting comfortably no acute distress. Abdomen remained soft nontender is not vomiting here. Feels better after IV fluids and nausea medicine however he is requesting admission the hospital. He has been reviewed shows no free air any normal bowel gas pattern. Blood work reviewed. 0317AM: Haldol IV 2.5mg. Ordered for Nausea. 0320AM: Patient is getting IV fluids at this time. He received 2.5 mg IV Haldol he is feeling slightly better. No active vomiting here in the emergency room. 0506AM: Re-evaluation this time patient is resting comfortably feels much better. He p.o. challenge with ice chips. He had does ice chips well no vomiting. Agreeable discharge. Blood work has been reviewed is unremarkable. Abdomen is soft nontender. Prescription for Phenergan. He understands return to the ER if he develops worsening symptoms questions or concerns. This includes worsening vomiting, abdominal pain or fever. Source: Patient - Medical/Surgical History Hx Asthma: No Hx Chronic Respiratory Disease: No Hx Diabetes: No Hx Cardiac Disease: No Hx Renal Disease: No Hx Cirrhosis: No Hx Alcoholism: No Hx HIV/AIDS: No Hx Splenectomy or Spleen Trauma: No Other PMH: Med dc-L-fxkk-dx 01/2017, misdiagnosis of crohns in 2016, gerd. Surg- none - Social History Smoking Status: Never smoked Constitutional: Initial Vital Signs Temperature (C) 36.5 C 06/29/17 01:11 Heart Rate 48 L 06/29/17 01:11 Respiratory Rate 18 06/29/17 01:11 Blood Pressure 146/75 H 06/29/17 01:11 O2 Sat (%) 99 06/29/17 01:11 O2 Delivery Mode Nasal Cannula O2 (L/minute) 2 Allergies/Adverse Reactions: No Known Allergies Allergy (Verified 06/29/17 01:14) Home Medications: Medication Instructions Recorded Vancomycin [Vancocin Oral Liquid] 125 mg PO QID 06/23/17 Promethazine HCl 25 mg PO Q6-8PRN PRN #4 tablet 06/29/17 Protonix 06/29/17 Ranitidine HCl 06/29/17 Medical Decision Making - Data Points Laboratory Results: Laboratory Results 06/29/17 01:27 06/29/17 01:27 06/29/17 06/29/17 06/29/17 01:27 01:27 01:27 WBC 11.48 10^3/uL H 10^3/uL (3.80-9.50) RBC 4.69 10^6/uL 10^6/uL (4.40-6.38) Hgb 14.5 g/dL g/dL (13.7-17.5) Hct 42.8 % % (40.0-51.0) MCV 91.3 fL fL (81.5-99.8) MCH 30.9 pg pg (27.9-34.1) MCHC 33.9 g/dL g/dL (32.4-36.7) RDW 12.3 % % (11.5-15.2) Plt Count 196 10^3/uL 10^3/uL (150-400) MPV 11.1 fL fL (8.7-11.7) Neut % (Auto) 85.4 % H % (39.3-74.2) Lymph % (Auto) 8.4 % L % (15.0-45.0) [place] % (Auto) 5.6 % % (4.5-13.0) Eos % (Auto) 0.0 % L % (0.6-7.6) Baso % (Auto) 0.3 % % (0.3-1.7) Nucleat RBC Rel Count 0.0 % % (0.0-0.2) Absolute Neuts (auto) 9.79 10^3/uL H 10^3/uL (1.70-6.50) Absolute Lymphs (auto) 0.97 10^3/uL L 10^3/uL (1.00-3.00) Absolute Monos (auto) 0.64 10^3/uL 10^3/uL (0.30-0.80) Absolute Eos (auto) 0.00 10^3/uL L 10^3/uL (0.03-0.40) Absolute Basos (auto) 0.04 10^3/uL 10^3/uL (0.02-0.10) Absolute Nucleated RBC 0.00 10^3/uL 10^3/uL (0-0.01) Immature Gran % 0.3 % % (0.0-1.1) Immature Gran # 0.04 10^3/uL 10^3/uL (0.00-0.10) PT 14.9 SEC SEC (12.0-15.0) INR 1.17 H (0.83-1.16) APTT 23.3 SEC SEC (23.0-38.0) Sodium 142 mEq/L mEq/L (134-144) Potassium 3.9 mEq/L mEq/L (3.5-5.2) Chloride 106 mEq/L mEq/L (97-110) Carbon Dioxide 20 mEq/l L mEq/l (22-31) Anion Gap 16 mEq/L mEq/L (8-16) BUN 13 mg/dL mg/dL (7-23) Creatinine 1.2 mg/dL mg/dL (0.7-1.3) Estimated GFR > 60 Glucose 134 mg/dL H mg/dL (70-100) Calcium 9.7 mg/dL mg/dL (8.5-10.4) Total Bilirubin 0.9 mg/dL mg/dL (0.1-1.4) Conjugated Bilirubin 0.4 mg/dL mg/dL (0.0-0.5) Unconjugated Bilirubin 0.5 mg/dL mg/dL (0.0-1.1) AST 28 IU/L IU/L (17-59) ALT 43 IU/L IU/L (21-72) Alkaline Phosphatase 57 IU/L IU/L (38-126) Total Protein 7.2 g/dL g/dL (6.3-8.2) Albumin 4.5 g/dL g/dL (3.5-5.0) Lipase 81 IU/L IU/L (23-300) Medications Given: Discontinued Medications Haloperidol Lactate (Haldol Injection) 2.5 mg IVP EDNOW ONE Stop: 06/29/17 03:14 Last Admin: 06/29/17 03:34 Dose: 2.5 mg Sodium Chloride (Ns) 1,000 mls @ 0 mls/hr IV EDNOW ONE; Wide Open PRN Reason: Protocol Stop: 06/29/17 01:20 Last Admin: 06/29/17 01:46 Dose: 1,000 mls Sodium Chloride (Ns) 1,000 mls @ 0 mls/hr IV ONCE ONE PRN Reason: Wide Open Stop: 06/29/17 03:32 Last Admin: 06/29/17 03:35 Dose: 1,000 mls Ketamine HCl (Ketamine) 20 mg IVP EDNOW ONE Stop: 06/29/17 03:27 Last Admin: 06/29/17 03:35 Dose: 20 mg Ondansetron HCl (Zofran) 4 mg IVP EDNOW ONE Stop: 06/29/17 01:20 Last Admin: 06/29/17 01:46 Dose: 4 mg Promethazine HCl (Phenergan) 12.5 mg IVP EDNOW ONE Stop: 06/29/17 02:35 Last Admin: 06/29/17 02:56 Dose: 12.5 mg Departure - Departure Disposition: Home, Routine, Self-Care Clinical Impression: Nausea & vomiting Qualifiers: Vomiting type: unspecified Vomiting Intractability: non-intractable Qualified Code(s): R11.2 - Nausea with vomiting, unspecified Condition: Good Instructions: Acute Nausea and Vomiting (ED) Additional Instructions: 1. Please return emergency room if develops worsening symptoms includes worsening nausea vomiting abdominal pain fever. Referrals: NONE *PRIMARY CARE P,. [Primary Care Provider] - As per Instructions Prescriptions: Promethazine HCl 25 mg PO Q6-8PRN PRN #4 tablet PRN Reason: Nausea/Vomiting, Use 1st
[2017-06-29 01:56] LABS: % IMMATURE GRANULYOCYTES 0.3 % (0.0-1.1); ABSOLUTE IMMATURE GRANULOCYTES 0.04 10^3/uL (0.00-0.10); ADD DIFF? NO; ADD MORPH? NO; ADD SCAN? NO; ATYPICAL LYMPHOCYTE FLAG 0 (0-99); FRAGMENT RBC FLAG 0 (0-99); HEMATOCRIT 42.8 % (40.0-51.0); HEMOGLOBIN 14.5 g/dL (13.7-17.5); LEFT SHIFT FLG 0 (0-99); LIPEMIA HEMOLYSIS FLAG 90 (0-99); MEAN CELL HEMOGLOBIN 30.9 pg (27.9-34.1); MEAN CELL HEMOGLOBIN CONCENTR. 33.9 g/dL (32.4-36.7); MEAN CELL VOLUME 91.3 fL (81.5-99.8); MEAN PLATELET VOLUME 11.1 fL (8.7-11.7); PLATELET CLUMPS FLAG 0 (0-99); PLATELET COUNT 196 10^3/uL (150-400); RED BLOOD CELL COUNT 4.69 10^6/uL (4.40-6.38); RED CELL DISTRIBUTION WIDTH 12.3 % (11.5-15.2)
[2017-06-29 02:04] LABS: ALANINE AMINOTRANSFERASE 43 IU/L (21-72); ALBUMIN 4.5 g/dL (3.5-5.0); ALKALINE PHOSPHATASE 57 IU/L (38-126); ANION GAP 16 mEq/L (8-16); ASPARTATE AMINOTRANSFERASE 28 IU/L (17-59); BILIRUBIN,TOTAL 0.9 mg/dL (0.1-1.4); BILIRUBIN-CONJUGATED 0.4 mg/dL (0.0-0.5); BILIRUBIN-UNCONJUGATED 0.5 mg/dL (0.0-1.1); CALCIUM 9.7 mg/dL (8.5-10.4); CARBON DIOXIDE 20 mEq/l (22-31); CHLORIDE 106 mEq/L (97-110); CREATININE 1.2 mg/dL (0.7-1.3); GLOMERULAR FILTRATION RATE > 60; GLUCOSE 134 mg/dL (70-100); POTASSIUM 3.9 mEq/L (3.5-5.2); SODIUM 142 mEq/L (134-144); TOTAL PROTEIN 7.2 g/dL (6.3-8.2)
[2017-06-29 02:05] LABS: INR 1.17 (0.83-1.16); PROTIME(PATIENT) 14.9 SEC (12.0-15.0)
[2017-06-29 02:06] LABS: APTT 23.3 SEC (23.0-38.0)
[2017-06-29] MEDS ORDERED: PROMETHAZINE HCL 25 MG/ML INJ IVP ONE ×2 (02:34)
[2017-06-29] MEDS ORDERED: HALOPERIDOL LACT 5 MG/ML INJ IVP ONE (03:13)
[2017-06-29] MEDS ORDERED: KETAMINE 100 MG/10 ML SYR IVP ONE (03:26)
[2017-06-29 04:19] VITALS: RESP 16
[2017-06-29 05:26] VITALS: BP 120/77; PULSE 66; TEMP 98.6; O2SAT 96
== END 2017-06-29 05:22 | disposition home or self-care (01) ==
DX: R11.2 Nausea with vomiting, unspecified (principal); E86.9 Volume depletion, unspecified
CPT/HCPCS: 96374; J2405; J2550

== ENCOUNTER 2017-06-30 07:47 | Emergency (ER) | payer SELFPAY ==
[2017-06-30 07:54] VITALS: RESP 18
[2017-06-30] MEDS ORDERED: KETAMINE 100 MG/10 ML SYR IVP ONE (08:10)
[2017-06-30] MEDS ORDERED: NS 1,000 ML IV ONE (08:10)
[2017-06-30] MEDS ORDERED: ONDANSETRON 4 MG/2 ML VIAL IVP ONE (08:10)
[2017-06-30] MEDS ORDERED: HALOPERIDOL LACT 5 MG/ML INJ IVP ONE (08:10)
--- NOTE | 2017-06-30 08:17 | EDPHY ---
H & P Stated Complaint: nausea and vomitting Time Seen by Provider: 06/30/17 08:07 HPI/ROS: CHIEF COMPLAINT: Acute nausea and vomiting HISTORY OF PRESENT ILLNESS: The patient presents to the emergency department with acute nausea and vomiting. The patient has a history of cannabis induced hyperemesis as well as a history of Clostridium difficile infection in January this year. The patient is currently on oral vancomycin. The patient was recently admitted to the hospital for acute exacerbation of the same symptoms. He had an extensive workup at that point time including a unremarkable CT scan of the abdomen pelvis as well as an unremarkable MRI of the abdomen pelvis. The patient was discharged home with a prescription for Phenergan tablets which has not helped his symptoms. The patient reports he has been abstaining from marijuana. The patient reports he has developed diarrhea over the past day. He is concerned about the possibility of ongoing Clostridium difficile. He is currently on oral vancomycin. During the patient's last hospitalization his stool was tested for C diff that was negative. REVIEW OF SYSTEMS: A comprehensive 10 point review of systems is otherwise negative aside from elements mentioned in the history of present illness. Source: Patient Exam Limitations: No limitations - Personal History Current Tetanus/Diphtheria Vaccine: Yes - Medical/Surgical History Hx Asthma: No Hx Chronic Respiratory Disease: No Hx Diabetes: No Hx Cardiac Disease: No Hx Renal Disease: No Hx Cirrhosis: No Hx Alcoholism: No Hx HIV/AIDS: No Hx Splenectomy or Spleen Trauma: No Other PMH: Med go-A-kufd-dx 01/2017, misdiagnosis of crohns in 2016, gerd. Surg- none - Social History Smoking Status: Never smoked - Physical Exam Exam: General Appearance: Alert, retching Eyes: Pupils equal and round no pallor or injection ENT, Mouth: Mucous membranes moist Respiratory: There are no retractions, lungs are clear to auscultation Cardiovascular: Regular rate and rhythm Gastrointestinal: Minimal abdominal tenderness, no peritoneal signs, normal bowel sounds Neurological: A&O, normal motor function, normal sensory exam, normal cranial nerves Skin: Warm and dry, no rashes Musculoskeletal: Neck is supple nontender Extremities: symmetrical, full range of motion Constitutional: Initial Vital Signs Temperature (C) 36.8 C 06/30/17 07:48 Respiratory Rate 18 06/30/17 07:48 O2 Sat (%) 96 06/30/17 07:48 O2 Delivery Mode Room Air Allergies/Adverse Reactions: No Known Allergies Allergy (Verified 06/29/17 01:14) Home Medications: Medication Instructions Recorded Vancomycin [Vancocin Oral Liquid] 125 mg PO QID 06/23/17 Promethazine HCl 25 mg PO Q6-8PRN PRN #4 tablet 06/29/17 Protonix 06/29/17 Ranitidine HCl 06/29/17 Ondansetron Odt [Zofran Odt] 4 mg PO Q4PRN PRN #20 tab 06/30/17 Medical Decision Making ED Course/Re-evaluation: The patient presents to the ED with an acute exacerbation of cyclic vomiting and reported new diarrhea. The patient had an IV established. He received IV Zofran and 2.5 mg of Haldol. The patient was offered IV ketamine and declined. The patient received 1 L of normal saline. I reviewed the results of the patient's last hospitalization, H&P, discharge summary, GI consult, abdominal CT and abdominal MRI. The patient continued to have ongoing vomiting. He received an additional 12.5 mg of Phenergan at 9:00 a.m.. The patient's stool has been sent per his request for repeat C diff testing. The patient's lipase is within normal limits. He has a slight leukocytosis presumably secondary to his vomiting. The patient has no evidence of critical anemia or metabolic abnormality. The patient had multiple examinations over a 4 hour period. The patient received an additional IV dose of Ativan. Re-examination at 12:15 p.m.. The patient is in no acute distress. His vomiting has resolved and he would like to be discharged home. The patient will be provided a prescription for Zofran tablets. Differential Diagnosis: Differential diagnosis considered includes cyclic vomiting syndrome, dehydration , renal failure, metabolic abnormality, Clostridium difficile colitis, cannabis induced hyperemesis - Data Points Laboratory Results: Laboratory Results 06/30/17 08:20 06/30/17 08:20 06/30/17 06/30/17 06/30/17 08:40 08:20 08:20 WBC 12.23 10^3/uL H 10^3/uL (3.80-9.50) RBC 4.73 10^6/uL 10^6/uL (4.40-6.38) Hgb 14.6 g/dL g/dL (13.7-17.5) Hct 43.1 % % (40.0-51.0) MCV 91.1 fL fL (81.5-99.8) MCH 30.9 pg pg (27.9-34.1) MCHC 33.9 g/dL g/dL (32.4-36.7) RDW 12.0 % % (11.5-15.2) Plt Count 172 10^3/uL 10^3/uL (150-400) MPV 10.4 fL fL (8.7-11.7) Neut % (Auto) 77.2 % H % (39.3-74.2) Lymph % (Auto) 13.2 % L % (15.0-45.0) [place] % (Auto) 8.6 % % (4.5-13.0) Eos % (Auto) 0.2 % L % (0.6-7.6) Baso % (Auto) 0.3 % % (0.3-1.7) Nucleat RBC Rel Count 0.0 % % (0.0-0.2) Absolute Neuts (auto) 9.44 10^3/uL H 10^3/uL (1.70-6.50) Absolute Lymphs (auto) 1.62 10^3/uL 10^3/uL (1.00-3.00) Absolute Monos (auto) 1.05 10^3/uL H 10^3/uL (0.30-0.80) Absolute Eos (auto) 0.02 10^3/uL L 10^3/uL (0.03-0.40) Absolute Basos (auto) 0.04 10^3/uL 10^3/uL (0.02-0.10) Absolute Nucleated RBC 0.00 10^3/uL 10^3/uL (0-0.01) Immature Gran % 0.5 % % (0.0-1.1) Immature Gran # 0.06 10^3/uL 10^3/uL (0.00-0.10) Sodium 143 mEq/L mEq/L (134-144) Potassium 3.4 mEq/L L mEq/L (3.5-5.2) Chloride 104 mEq/L mEq/L (97-110) Carbon Dioxide 23 mEq/l mEq/l (22-31) Anion Gap 16 mEq/L mEq/L (8-16) BUN 13 mg/dL mg/dL (7-23) Creatinine 1.3 mg/dL mg/dL (0.7-1.3) Estimated GFR > 60 Glucose 101 mg/dL H mg/dL (70-100) Calcium 9.6 mg/dL mg/dL (8.5-10.4) Lipase 81 IU/L IU/L (23-300) C. difficile Tox (PCR) NEGATIVE (NEGATIVE) Medications Given: Discontinued Medications Haloperidol Lactate (Haldol Injection) 2.5 mg IVP EDNOW ONE Stop: 06/30/17 08:11 Last Admin: 06/30/17 08:31 Dose: 2.5 mg Sodium Chloride (Ns) 1,000 mls @ 0 mls/hr IV EDNOW ONE; Wide Open PRN Reason: Protocol Stop: 06/30/17 08:11 Last Admin: 06/30/17 08:35 Dose: 1,000 mls Ketamine HCl (Ketamine) 20 mg IVP EDNOW ONE Stop: 06/30/17 08:11 Last Admin: 06/30/17 08:34 Dose: Not Given Lorazepam (Ativan Injection) 1 mg IVP EDNOW ONE Stop: 06/30/17 10:53 Last Admin: 06/30/17 11:12 Dose: 1 mg Ondansetron HCl (Zofran) 4 mg IVP EDNOW ONE Stop: 06/30/17 08:11 Last Admin: 06/30/17 08:35 Dose: 4 mg Promethazine HCl (Phenergan) 12.5 mg IVP ONCE ONE Stop: 06/30/17 08:59 Last Admin: 06/30/17 09:06 Dose: 12.5 mg Departure - Departure Disposition: Home, Routine, Self-Care Clinical Impression: Cyclic vomiting syndrome, Dehydration, Diarrhea Condition: Serious Instructions: Acute Nausea and Vomiting (ED) Additional Instructions: 1. Please use Zofran as directed for nausea. 2. Please follow up with your counter tacker as scheduled. 3. Please continue to have complete abstinence from marijuana. 4. Your C diff test continues to be negative. Please continue antibiotics as prescribed. Follow up with your primary care provider as scheduled. Referrals: Tawanda Adams MD [Medical Doctor] - As per Instructions
[2017-06-30 08:29] LABS: % IMMATURE GRANULYOCYTES 0.5 % (0.0-1.1); ABSOLUTE IMMATURE GRANULOCYTES 0.06 10^3/uL (0.00-0.10); ADD DIFF? NO; ADD MORPH? NO; ADD SCAN? NO; ATYPICAL LYMPHOCYTE FLAG 0 (0-99); FRAGMENT RBC FLAG 0 (0-99); HEMATOCRIT 43.1 % (40.0-51.0); HEMOGLOBIN 14.6 g/dL (13.7-17.5); LEFT SHIFT FLG 10 (0-99); LIPEMIA HEMOLYSIS FLAG 90 (0-99); MEAN CELL HEMOGLOBIN 30.9 pg (27.9-34.1); MEAN CELL HEMOGLOBIN CONCENTR. 33.9 g/dL (32.4-36.7); MEAN CELL VOLUME 91.1 fL (81.5-99.8); MEAN PLATELET VOLUME 10.4 fL (8.7-11.7); PLATELET CLUMPS FLAG 0 (0-99); PLATELET COUNT 172 10^3/uL (150-400); RED BLOOD CELL COUNT 4.73 10^6/uL (4.40-6.38)
[2017-06-30 08:55] LABS: ANION GAP 16 mEq/L (8-16); CALCIUM 9.6 mg/dL (8.5-10.4); CARBON DIOXIDE 23 mEq/l (22-31); CHLORIDE 104 mEq/L (97-110); CREATININE 1.3 mg/dL (0.7-1.3); GLOMERULAR FILTRATION RATE > 60; GLUCOSE 101 mg/dL (70-100); POTASSIUM 3.4 mEq/L (3.5-5.2); SODIUM 143 mEq/L (134-144)
[2017-06-30] MEDS ORDERED: PROMETHAZINE HCL 25 MG/ML INJ ONE (08:57)
[2017-06-30] MEDS ORDERED: PROMETHAZINE HCL 25 MG/ML INJ IVP ONE (08:58)
[2017-06-30] MEDS ORDERED: LORazepam 2 MG/ML INJ IVP ONE (10:52)
[2017-06-30 12:35] VITALS: BP 146/73; PULSE 46; TEMP 98.1; O2SAT 95
== END 2017-06-30 12:35 | disposition home or self-care (01) ==
DX: G43.A0 Cyclical vomiting, in migraine, not intractable (principal); E86.0 Dehydration; R19.7 Diarrhea, unspecified; E86.9 Volume depletion, unspecified
CPT/HCPCS: 96374; J2060; J2405; J2550